=== PATIENT | female | born 1970 | race Asian ===

== ENCOUNTER 2016-04-25 23:57 | Emergency (ER) | payer OTHER ==
[~2016-04-25] VITALS: Ht 167.6 cm; Wt 89.1 kg
[2016-04-26] MEDS ORDERED: SITA100 PO (00:08)
[2016-04-26] MEDS ORDERED: METF10002 PO (00:08)
[2016-04-26] MEDS ORDERED: INSLAN SQ (00:08)
[2016-04-26] MEDS ORDERED: CANA100T PO (00:08)
[2016-04-26] MEDS ORDERED: GLIP5TAB11 PO (00:08)
[2016-04-26] MEDS ORDERED: INSU100C14 SQ (00:08)
[2016-04-26] MEDS ORDERED: ASPI-556 PO (00:11)
[2016-04-26] MEDS ORDERED: OMEP10CA41 PO (00:11)
[2016-04-26] MEDS ORDERED: CARV25TA32 PO (00:11)
[2016-04-26] MEDS ORDERED: LEVO112T7 PO (00:11)
[2016-04-26] MEDS ORDERED: LEVO25TA9 PO (00:11)
[2016-04-26] MEDS ORDERED: LOSA50TA37 PO (00:11)
[2016-04-26] MEDS ORDERED: ATOR10TA69 PO (00:11)
[2016-04-26 01:15] LABS: GLUCOSE COMMENT 1 Juice/Food/D50 Given; GLUCOSE,POINT OF CARE 79 MG/DL (70-110)
[2016-04-26 01:26] LABS: BASOPHILS # (AUTO) 0.09 K/uL (0.00-0.20); BASOPHILS % (AUTO) 0.8 % (0.0-2.0); EOSINOPHILS # (AUTO) 0.15 K/uL (0.00-0.70); EOSINOPHILS % (AUTO) 1.24 % (1.0-6.0); HEMATOCRIT 48.6 % (36-46); HEMOGLOBIN 15.8 g/dL (12.0-16.0); LYMPHOCYTES # (AUTO) 3.2 K/uL (1.0-4.8); LYMPHOCYTES % (AUTO) 27.1 % (22.0-44.0); MEAN CORPUSCULAR HEMOGLOBIN 27.4 pg (26.0-34.0); MEAN CORPUSCULAR HGB CONC 32.5 G/dL (31.0-37.0); MEAN CORPUSCULAR VOLUME 84 fL (80-100); MONOCYTES # (AUTO) 0.8 K/uL (0.1-1.0); MONOCYTES % (AUTO) 6.6 % (2.0-9.0); NEUTROPHILS # (AUTO) 7.7 K/uL (1.8-7.7); NEUTROPHILS % (AUTO) 64.3 % (40.0-70.0); PLATELET COUNT (AUTO) 307 K/uL (150-450); RED BLOOD CELL COUNT(AUTO) 5.77 MIL/uL (4.00-5.20); RED CELL DISTRIBUTION WIDTH 14.4 % (11.5-14.5); WHITE BLOOD COUNT (AUTO) 11.9 K/uL (4.5-11.0)
[2016-04-26 01:34] LABS: CALCIUM, TOTAL 9.6 mg/dL (8.8-10.5); CREATININE 1.31 mg/dL (0.60-1.30); POTASSIUM 3.2 mmol/L (3.5-5.1)
[2016-04-26 02:36] LABS: GLUCOSE,POINT OF CARE 169 MG/DL (70-110)
[2016-04-26 04:05] VITALS: BP 133/81
== END 2016-04-26 04:27 | disposition home or self-care (01) ==
LOC: EMS 23:58
DX: E11.649 Type 2 diabetes mellitus with hypoglycemia without coma (principal); I10 Essential (primary) hypertension; Z79.82 Long term (current) use of aspirin; Z79.4 Long term (current) use of insulin; Z91.013 Allergy to seafood
CPT/HCPCS: 82962; 99284

== ENCOUNTER 2016-11-06 10:47 | Emergency (ER) | payer OTHER ==
[~2016-11-06] VITALS: Ht 152.4 cm; Wt 81.8 kg
[~2016-11-06 10:47] MED LIST: ASPI-556 PO; ATOR10TA69 PO; CANA100T PO; CARV25TA32 PO; GLIP5TAB11 PO; INSLAN SQ; INSU100C14 SQ; LEVO112T7 PO; LEVO25TA9 PO; LOSA50TA37 PO; METF10002 PO; OMEP10CA41 PO; SITA100 PO
[2016-11-06] MEDS ORDERED: INSU100V SQ (10:51)
[2016-11-06 10:57] LABS: GLUCOSE,POINT OF CARE 230 MG/DL (70-110)
[2016-11-06] MEDS ORDERED: HYDROCODONE/ACETAMINOPHEN 5-325 MG TABLET PO ONE (11:30)
[2016-11-06 14:25] VITALS: BP 133/89
== END 2016-11-06 14:27 | disposition home or self-care (01) ==
LOC: EMS 10:49
DX: M25.462 Effusion, left knee (principal); M17.12 Unilateral primary osteoarthritis, left knee; E11.9 Type 2 diabetes mellitus without complications; I10 Essential (primary) hypertension; E78.00 Pure hypercholesterolemia, unspecified; E03.9 Hypothyroidism, unspecified; Z79.4 Long term (current) use of insulin; Z79.82 Long term (current) use of aspirin; Z91.013 Allergy to seafood
CPT/HCPCS: 82962; 99284

== ENCOUNTER 2023-03-09 17:49 | Emergency (ER) | payer OTHER ==
[~2023-03-09] VITALS: Ht 162.6 cm; Wt 90.9 kg
[~2023-03-09 17:49] MED LIST changes: -GLIP5TAB11 PO; +GLIP5TAB15 PO; -INSU100C14 SQ; +INSU100V SQ; -LOSA50TA37 PO; +LOSA50TA65 PO; +METF-446 PO; -METF10002 PO; -OMEP10CA41 PO; +OMEP10CA5 PO
[2023-03-09 18:00] VITALS: TEMP 97.3
[2023-03-09] MEDS ORDERED: AMLO-257 PO (18:00)
[2023-03-09] MEDS ORDERED: FENO54TA7 PO (18:00)
[2023-03-09] MEDS ORDERED: ALBU0.212 NEB (18:00)
[2023-03-09 18:35] LABS: BASOPHILS % (AUTO) 1.7 % (0.0-2.0); EOSINOPHILS % (AUTO) 2.4 % (1.0-6.0); HEMOGLOBIN 17.3 g/dL (12.0-16.0); LYMPHOCYTES # (AUTO) 2.7 K/uL (1.0-4.8); LYMPHOCYTES % (AUTO) 33.4 % (22.0-44.0); MEAN CORPUSCULAR HEMOGLOBIN 33.1 pg (26.0-34.0); MEAN CORPUSCULAR VOLUME 88 fL (80-100); MONOCYTES # (AUTO) 0.5 K/uL (0.1-1.0); MONOCYTES % (AUTO) 5.9 % (2.0-9.0); NEUTROPHILS # (AUTO) 4.5 K/uL (1.8-7.7); NEUTROPHILS % (AUTO) 56.6 % (40.0-70.0); PLATELET COUNT (AUTO) 207 K/uL (150-450); RED BLOOD CELL COUNT(AUTO) 5.21 MIL/uL (4.00-5.20); RED CELL DISTRIBUTION WIDTH 13.9 % (11.5-14.5)
[2023-03-09 19:08] LABS: CALCIUM, TOTAL 8.9 mg/dL (8.8-10.5); CREATININE 1.6 mg/dL (0.60-1.30); POTASSIUM 3.8 mmol/L (3.5-5.1)
[2023-03-09 19:16] LABS: TROPONIN I-HIGH SENSITIVITY 18 ng/L (<51)
[2023-03-09 19:33] LABS: ALBUMIN 2.3 g/dL (3.4-5.0); BILIRUBIN,TOTAL 0.3 mg/dL (0.1-1.0)
[2023-03-09] MEDS ORDERED: MECLIZINE HCL 25 MG TABLET PO ONE (21:45)
[2023-03-09 22:10] VITALS: BP 147/101; PULSE 70; RESP 18
[2023-03-09] MEDS ORDERED: MECL-226 PO (22:30)
== END 2023-03-09 22:46 | disposition home or self-care (01) ==
LOC: EMS 17:49
DX: R42 Dizziness and giddiness (principal); E11.9 Type 2 diabetes mellitus without complications; I10 Essential (primary) hypertension; Z91.013 Allergy to seafood
CPT/HCPCS: 71045; 80053; 82550; 83880; 84484; 85025; 93005; 99285; 36415-L1; 36415-TC